=== PATIENT | male | born 1950 | race Hispanic/Latino ===

== ENCOUNTER 2017-07-30 13:26 | Outpatient (CLI) | payer MEDICARE | END 2017-07-30 13:27 | disposition home or self-care (01) | LOC: CP 13:26 | PROVIDERS: ATTEND Internal Medicine | DX: J84.10 Pulmonary fibrosis, unspecified (principal) | CPT/HCPCS: 94060; 94727; 94729 ==

== ENCOUNTER 2018-07-03 12:26 | Outpatient (CLI) | payer MEDICARE | END 2018-07-03 12:27 | disposition home or self-care (01) | LOC: BICRAD 12:26 | PROVIDERS: ATTEND Physician Assistant | DX: R05 Cough (principal); R91.8 Other nonspecific abnormal finding of lung field | CPT/HCPCS: 36415; 71046; 80053; 83036; 85025 ==

== ENCOUNTER 2021-06-28 13:13 | Outpatient (CLI) | payer MEDICARE | END 2021-06-28 13:14 | disposition home or self-care (01) | LOC: BICRAD 13:13 | PROVIDERS: ATTEND Physician Assistant | DX: R05 Cough (principal); J84.10 Pulmonary fibrosis, unspecified; J98.4 Other disorders of lung | CPT/HCPCS: 71046 ==